=== PATIENT | male | born 1935 | race Caucasian/White ===

== ENCOUNTER 2019-07-26 10:52 | Outpatient (CLI) | payer MEDICARE ==
--- NOTE | 2019-07-26 12:13 | CT ---
CT OF THE ABDOMEN AND PELVIS WITH AND WITHOUT IV CONTRAST INDICATION: 83-year-old male with enlarged inguinal lymph node COMPARISON: None FINDINGS: ABDOMEN: Lung bases: Clear Liver: There is a tiny suspected cyst within the left hepatic lobe. Gallbladder: Normal appearing. Pancreas: Normal. Adrenal glands: Normal. Spleen: Spleen is enlarged measuring 14.6 cm. Kidneys and ureters: Normal. No hydronephrosis. Vasculature: There are moderate vascular calcifications seen involving the visualized vasculature. Lymph nodes:No lymphadenopathy. Free fluid in abdomen:No free fluid is evident. PELVIS: Small and large bowel: There are scattered colonic diverticula without evidence of active diverticuli tis. Appendix:Normal Bladder: Normal. Rectal and perirectal soft tissues:Normal. Reproductive structures: Normal. Free fluid in pelvis: No free fluid is evident. Lymphadenopathy pelvis: There is a mildly prominent left inguinal lymph node additional left common f emoral vein measuring 1.2 cm. There is a 0.9 cm lymph node within the right inguinal region. There is a fat-containing left inguinal hernia. Osseous structures: No acute osseous abnormality. No destructive osteolytic or osteoblastic lesion i s identified. There is scattered degenerative and osteoarthritic changes. Soft tissues:There is a fat-containing umbilical hernia IMPRESSION: 1. Mildly prominent left inguinal lymph node measuring up to 1.2 cm. This is nonspecific and suspecte d be reactive. Continued clinical follow-up is recommended. No additional enlarged lymph nodes seen within the abdomen or pelvis. 2. Nonspecific mild splenomegaly. 3. Colonic diverticulosis 4. Fat-containing left inguinal hernia and umbilical hernia.
[2019-07-26] MEDS ORDERED: Iopamidol-370 76% 500 ML 1 ML ONE (14:29)
== END 2019-07-26 10:53 | disposition home or self-care (01) ==
LOC: BICCT 10:52
PROVIDERS: ATTEND Internal Medicine Cardiovascular Disease
DX: R59.0 Localized enlarged lymph nodes (principal); R16.1 Splenomegaly, not elsewhere classified; K57.30 Diverticulosis of large intestine without perforation or abscess without bleeding; K40.90 Unilateral inguinal hernia, without obstruction or gangrene, not specified as recurrent
CPT/HCPCS: 74178; 82565; Q9967

== ENCOUNTER 2020-03-14 12:43 | Outpatient (CLI) | payer MEDICARE ==
--- NOTE | 2020-03-14 13:42 | CT ---
CT abdomen and pelvis noncontrast HISTORY: Enlarged inguinal lymph node. Follow-up. COMPARISON: 07/26/2019. FINDINGS: Minimal parenchymal scarring at the lung bases. Each renal collecting system, ureter, and u rinary bladder are decompressed without stone apparent. There is calcification throughout the arterial structures. Prominent degenerative changes lower lumbar spine, including multilevel foraminal stenoses. Central c anal stenosis is most severe at the L4-5 level where there is disc space narrowing and grade 1 spondylolisthesis. Fat protruding into an umbilical and left inguinal hernias is unchanged in appearance. Lack of contrast limits evaluation of the soft tissues. Spleen remains mildly enlarged. The 2.3 cm ri ght inguinal lymph node is unchanged in appearance. Borderline size reactive appearing lymph nodes along each inguinal and femoral chain retaining normal fatty jay and are stable. IMPRESSION : Stable radiographic appearance of reactive appearing inguinal lymph nodes. Given the interval stabili ty, further follow-up likely not necessary. Prominent degenerative changes lumbar spine including severe central canal stenosis at the L4-5 level . Atherosclerosis. Chronic-type findings are stable.
== END 2020-03-14 12:44 | disposition home or self-care (01) ==
LOC: BICCT 12:43
PROVIDERS: ATTEND Internal Medicine Cardiovascular Disease
DX: R59.0 Localized enlarged lymph nodes (principal)
CPT/HCPCS: 74176